=== PATIENT | male | born 1945 | race Hispanic/Latino ===

== ENCOUNTER 2017-09-03 11:42 | Day surgery (SDC) | payer MEDICARE, OTHER ==
[~2017-09-03 11:42] MED LIST: ANCEF/STERILE WATER 2 GM/20 ML IV NR
[2017-09-03] MEDS ORDERED: PEPCID ONE (13:39)
--- NOTE | 2017-09-03 13:45 | Anesthesia Day of Surgery ---
Anesthesia Day of Surgery - Day of Surgery Patient Examined: Yes Patient H&P Reviewed: Yes Patient is NPO: Yes Beta Blockers: Yes Cardiac Clearance: Yes
--- NOTE | 2017-09-03 13:45 | Anesthesia Consultation ---
Anesthesia Consult and Med Hx Date of service: 09/03/17 - Airway Anesthetic Teeth Evaluation: Good ROM Head & Neck: Adequate Mental/Hyoid Distance: Adequate Mallampati Class: Class II Intubation Access Assessment: Probably Good - Pre-Operative Health Status ASA Pre-Surgery Classification: ASA2 Proposed Anesthetic Plan: General - Pulmonary Hx Asthma: Yes - Cardiovascular System Hx Hypertension: Yes Hx Coronary Artery Disease: No (high cholesterol) Hx Cardia Arrhythmia: Yes (paroxismal atrial fibrilation) - Central Nervous System CVA: Yes (2014) Hx Back Pain: Yes Hx Psychiatric Problems: Yes (anxiety) - Other Systems Hx Alcohol Use: No Hx Substance Use: No Hx Cancer: Yes (Squamous cell R arm)
[2017-09-03] MEDS ORDERED: VERSED IV NR (14:00)
[2017-09-03] MEDS ORDERED: NACL 0.9% 1000 ML 1,000 ML IV SCH (14:00)
[2017-09-03] MEDS ORDERED: PEPCID PO NR (14:00)
[2017-09-03] MEDS ORDERED: XYLOCAINE MPF 2% ONE (14:24)
[2017-09-03] MEDS ORDERED: ZOFRAN ONE (14:24)
[2017-09-03] MEDS ORDERED: QUELICIN ONE (14:24)
[2017-09-03] MEDS ORDERED: DIPRIVAN 10 MG/ML IV ONE (14:25)
[2017-09-03] MEDS ORDERED: SUBLIMAZE ONE ×2 (14:25)
[2017-09-03] MEDS ORDERED: ROBINUL ONE ×2 (14:39→16:02)
[2017-09-03] MEDS ORDERED: ePHEDrine SULFATE ONE (14:44)
[2017-09-03] MEDS ORDERED: MARCAINE 0.25% INFILTRATI ONE ×3 (14:53→15:01)
[2017-09-03] MEDS ORDERED: LACTATED RINGERS 1,000 ML ONE (15:06)
--- NOTE | 2017-09-03 16:03 | Operative Report ---
Operative Report Operative Report: Date of procedure: 09/03/2017 Pre-operative diagnosis: Right inguinal hernia Post-operative diagnosis: Same Procedure name(s): Laparoscopic preperitoneal right inguinal hernia repair with mesh Surgeon: Sky Kim MD Recreational Counselor: Shorty Crump M.D. Anesthesia: General, 0.25% Marcaine EBL: Minimal Complications: None Instrument Count: Correct Indications: This is a 71-year-old male with a history of a right groin bulge. Clinical examination was consistent with a right inguinal hernia. He is offered the above-named procedures a possible treatment modality. The risks and benefits discussed and all questions were answered. He was subsequently brought to the OR. Findings: Right inguinal hernia Procedure: The patient was placed supine upon the table after adequate anesthesia was reached. We reviewed the informed consent. The patient was then prepped and draped in the usual sterile fashion. We infiltrated local anesthetic at the level of the umbilicus. A 1 cm incision was made. Dissection was carried down to the anterior layer of the rectus sheath. This was incised using a 15 blade. The rectus muscles identify retract and laterally. We then inserted a Covidian oval balloon dissector into the pre- peritoneal space. This was inflated. We were clearly able to see the pubic arch as well as the epigastric vessels without difficulty. The balloon was then deflated and substituted for a 10 mm balloon tipped trocar. The preperitoneal space was insufflated a 10 mm mercury. We placed 2 5mm ports both in the midline after infiltration of local anesthetic. This was performed under direct vision. We began our dissection on the right and dissected free the hernia sac from the cord structures. Both the gonadal vessels and the vas deferens were identified and preserved. We then inserted a medium Bard 3-D Max right sided mesh into the preperitoneal space. This was secured medially to Ward's ligament using a Protack device and superiorly and laterally to the anterior abdominal wall. We had good coverage of all hernia spaces. We then evacuated the insufflation. We removed all ports, and close all port sites using a 4-0 Monocryl in a subcuticular fashion. The patient tolerated procedure well. Was awakened, extubated, and transferred to PACU in no apparent distress.
--- NOTE | 2017-09-03 16:07 | Short Stay Summary ---
Short Stay Documentation Date of service: 09/03/17 - History H&P: obtained from office - Allergies and Medications Current Medications: Allergies No Known Allergies Allergy (Verified 08/30/17 08:57) Home Medications Medication Instructions Recorded Confirmed Last Taken Type AtorvaSTATin [Lipitor] 10 mg PO QHS 09/03/17 09/03/17 09/02/17 History Clotrimazole 1% 1 dose BID 09/03/17 09/03/17 09/02/17 History Cyanocobalamin (Vitamin B-12) 1 tab PO QDAY 09/03/17 09/03/17 09/03/17 09:00 History [Vitamin B-12] Fluorouracil 5% (Nf) 1 dose BID 09/03/17 09/03/17 09/02/17 History Gabapentin [Neurontin] 2 cap PO BID 09/03/17 09/03/17 09/03/17 09:00 History Gabapentin [Neurontin] 3 cap PO QHS 09/03/17 09/03/17 09/02/17 History Lidocaine Topical 2% 1 dose BID 09/03/17 09/03/17 09/02/17 History Meloxicam [Meloxicam] 0.5 tab PO QDAY 09/03/17 09/03/17 Unknown History Metoprolol [Lopressor] 12.5 mg PO BID 09/03/17 09/03/17 09/03/17 09:00 History Rivaroxaban [Xarelto] 20 mg PO QDAY 09/03/17 09/03/17 08/31/17 History Tadalafil [Cialis] 20 mg PO QDAY PRN 09/03/17 09/03/17 08/26/17 History Terazosin [Hytrin] 5 mg PO QHS 09/03/17 09/03/17 09/02/17 History Active Medications Cefazolin Sodium (Ancef/Sterile Water 2 Gm/20 Ml) 2 gm IV PREOP NR Stop: 09/03/17 23:01 Famotidine (Pepcid) 20 mg PO PREOP NR Stop: 09/03/17 20:00 Last Admin: 09/03/17 13:42 Dose: 20 mg Sodium Chloride (Nacl 0.9% 1000 Ml) 1,000 mls @ 75 mls/hr IV DIRECT ERNST Last Admin: 09/03/17 13:43 Dose: 75 mls/hr Midazolam HCl (Versed) 2 mg IV PREOP NR Stop: 09/03/17 23:59 Last Admin: 09/03/17 13:59 Dose: 2 mg - Brief post op/procedure progress note Date of procedure: 09/03/17 Pre-op diagnosis: right inguinal hernia Post-op diagnosis: same Procedure: Laparoscopic preperitoneal right inguinal hernia repair with mesh Anesthesia: NACHO Surgeon: CHANG CARSON Director Of Elementary Education: EVELYNE SNOW Estimated blood loss: minimal Pathology: none Condition: stable - Disposition Condition at discharge: Stable Disposition: DC-01 TO HOME OR SELFCARE Short Stay Discharge Plan Activity: no restrictions Diet: regular Follow up with: NEHEMIAH SR [Other] - 7 Days CHANG CARSON MD [Staff Physician] - 7 Days Prescriptions: oxyCODONE /ACETAMINOPHEN [Percocet 5/325] 1 tab PO Q6HR PRN #30 tablet PRN Reason: Pain
[2017-09-03] MEDS ORDERED: PERCOCET 5/325 PO PRN (16:18)
--- NOTE | 2017-09-03 16:28 | Post Anesthesia Evaluation ---
- Post Anesthesia Evaluation Patient Participated: Yes Airway Patent: Yes Stable Respiratory Function: Yes Temp > 96.8F: Yes Pain Manageable: Yes Adequeate Hydration: Yes Anesthesia Complications: No
[2017-09-03] MEDS: DILAUDID IV PRN ×2 (16:40→16:54)
[2017-09-03] MEDS ORDERED: DILAUDID ONE (16:42)
[2017-09-03 21:52] VITALS: BP 135/68
== END 2017-09-03 19:25 | disposition home or self-care (01) ==
LOC: OR 11:42
PROVIDERS: ATTEND Surgery
DX: K40.90 Unilateral inguinal hernia, without obstruction or gangrene, not specified as recurrent (principal); K21.9 Gastro-esophageal reflux disease without esophagitis; E78.5 Hyperlipidemia, unspecified; M19.90 Unspecified osteoarthritis, unspecified site; J45.909 Unspecified asthma, uncomplicated; I48.0 Paroxysmal atrial fibrillation; I10 Essential (primary) hypertension; F41.9 Anxiety disorder, unspecified; F32.9 Major depressive disorder, single episode, unspecified; Z98.890 Other specified postprocedural states; Z79.899 Other long term (current) drug therapy; Z79.01 Long term (current) use of anticoagulants; Z86.73 Personal history of transient ischemic attack (TIA), and cerebral infarction without residual deficits; Z85.828 Personal history of other malignant neoplasm of skin; Z80.41 Family history of malignant neoplasm of ovary; Z82.49 Family history of ischemic heart disease and other diseases of the circulatory system
CPT/HCPCS: 49650; C1726; C1781; J0330; J0690; J1170; J2250; J2405; J2704; J3010; J7030; J7120